=== PATIENT | male | born 1965 | race Caucasian/White ===

== ENCOUNTER → 2017-02-11 | Outpatient (CLI) | payer OTHER ==
[2017-02-11 12:22] LABS: CH 31.6; CHCM 33.4; HCT 46.5 % (39.0-53.0); HDW 2.63; HGB 15.3 gm/dL (13.0-17.5); MCH 31.3 pg (25.0-35.0); MCHC 32.9 g/dL (31.0-37.0); MCV 95.1 fL (80.0-100.0); Mean Platelet Volume 8.5; RBC 4.89 m/uL (4.30-5.90); RDW 13.2 % (11.5-15.5); WBC 4.1 k/uL (3.8-10.6)
[2017-02-11 12:29] LABS: ALT 97 U/L (21-72); AST 52 U/L (17-59); Alkaline Phosphatase 60 U/L (38-126); Anion Gap 12 mmol/L; Blood Urea Nitrogen 17 mg/dL (9-20); Calcium 9.7 mg/dL (8.4-10.2); Carbon Dioxide 24 mmol/L (22-30); Chloride 108 mmol/L (98-107); Cholesterol 139 mg/dL (<200); Glucose 100 mg/dL (74-99); HDL Cholesterol 47 mg/dL (40-60); Non-African American GFR(MDRD) >60 (>60 ml/min/1.73 sqM); Potassium 4.7 mmol/L (3.5-5.1); Sodium 144 mmol/L (137-145); Total Bilirubin 0.7 mg/dL (0.2-1.3); Triglycerides 40 mg/dL (<150)
[2017-02-11 12:59] LABS: Prostate Specific Antigen 3.21 ng/mL (0.00-4.00)
== END | disposition home or self-care (01) ==
LOC: LABWHC1 11:41
PROVIDERS: ATTEND Family Medicine
DX: Z00.01 Encounter for general adult medical examination with abnormal findings (principal); I83.93 Asymptomatic varicose veins of bilateral lower extremities; Z71.3 Dietary counseling and surveillance; Z68.25 Body mass index [BMI] 25.0-25.9, adult
CPT/HCPCS: 36415; 80053; 80061; 84153; 84439; 84443; 85027

== ENCOUNTER 2017-06-09 06:26 | Day surgery (SDC) | payer OTHER ==
[2017-06-07 09:34] VITALS: BMI 25.5
[~2017-06-09 06:26] MED LIST: HEPARIN SODIUM,PORCINE 5,000 UNIT/ML 1 ML VIAL SQ ONE; HYDROmorphone 1 MG/ML 1 ML SYRINGE IVP PRN; LACTATED RINGERS 1,000 ML IV SCH; LIDOCAINE 1% 20 ML VIAL (10MG/ML) FOR IV START INTRADERMA PRN; Pre Op ABX Message 1 EACH MISC MISCELLANE ONE
[2017-06-09 07:06] VITALS: RESP 16; TEMP 98.2
--- NOTE | 2017-06-09 07:50 | P.GSHP ---
History of Present Illness H&P Date: 06/09/17 Chief Complaint: Right hip mass, screening colonoscopy Patient seen in the office in mid April. The patient has complaints of a mass in the right anterolateral hip. He said this is been there since he was young and believes it was related to a sports injury. He has lost about 80 pounds intentionally and notices the lesion more now than ever. He does not believe it is enlarged. There is mild discomfort at times. He also is interested in a screening colonoscopy. No rectal bleeding or melena. No family history of colon cancer. Past Medical History Past Medical History: No Reported History History of Any Multi-Drug Resistant Organisms: None Reported Past Surgical History: No Surgical Hx Reported Additional Past Surgical History / Comment(s): wisdom teeth as teen Past Anesthesia/Blood Transfusion Reactions: No Reported Reaction Additional Past Anesthesia/Blood Transfusion Reaction / Comment(s): no surgery Smoking Status: Former smoker - Past Family History Mother Family Medical History: No Reported History Medications and Allergies Home Medications Medication Instructions Recorded Confirmed Type No Known Home Medications [No 06/07/17 06/09/17 History Known Home Medications] Allergies Allergy/AdvReac Type Severity Reaction Status Date / Time ciprofloxacin [From Cipro] Allergy irreg. Verified 06/09/17 07:07 heart rate; tingling in arms Surgical - Exam Vital Signs Temp Pulse Resp BP Pulse Ox 98.2 F 53 L 16 126/76 95 06/09/17 07:04 06/09/17 07:04 06/09/17 07:04 06/09/17 07:04 06/09/17 07:04 Physical exam: General: Well-developed, well-nourished HEENT: Normocephalic, sclerae nonicteric Abdomen: Nontender, nondistended Extremities: No edema, 2.5 cm firm mass right anterior lateral thigh Neuro: Alert and oriented Assessment and Plan (1) Mass of right hip region Narrative/Plan: Will proceed with screening colonoscopy and excision right hip lesion. Risks of bleeding, infection, numbness, recurrent, potential need for additional surgery were discussed. He understands and wishes to proceed. Status: Acute
[2017-06-09] MEDS ORDERED: LIDOCAINE 1% INJ 10MG/ML (20 ML MDV) ONE (07:59)
[2017-06-09] MEDS ORDERED: fentaNYL (PF) 50 MCG/ML 2 ML AMP ONE (07:59)
[2017-06-09] MEDS ORDERED: PROPOFOL 10 MG/ML 20 ML VIAL IV ONE (07:59)
[2017-06-09] MEDS ORDERED: MIDAZOLAM 2 MG/2 ML VIAL ONE (07:59)
[2017-06-09] MEDS ORDERED: BUPIVACAINE (PF) 0.25% 30 ML VIAL SQ ONE ×3 (08:09→08:27)
[2017-06-09 09:08] VITALS: BP 98/64; PULSE 53
[2017-06-09] MEDS ORDERED: HYDROcodone/APAP 5-325MG 1 EACH TAB PO PRN (09:10)
[2017-06-09] MEDS ORDERED: NALOXONE 0.4 MG/ML 1 ML VIAL IV PRN (09:10)
--- NOTE | 2017-06-09 09:10 | P.PCN ---
Date of Procedure: 06/09/17 Preoperative Diagnosis: Postoperative Diagnosis: Procedure(s) Performed: PREOPERATIVE DIAGNOSIS: Right thigh mass, screening POSTOPERATIVE DIAGNOSIS: Right thigh mass, normal colon PROCEDURE: Colonoscopy , right thigh mass excision ANESTHESIA: MAC SURGEON: Jerel Ballesteros M.D. SPECIMENS: Right thigh mass ENDOSCOPIC PROCEDURE: The patient was placed on the endoscopy table in the supine position. The anterior right hip was prepped and draped in usual sterile fashion. The skin was localized using portable percent Marcaine solution. A horizontal incision was made overlying the palpable mass. Dissection through the saphenous tissues took place using electrocautery. The patient's mass was beneath the fascia. The fascia was incised. The calcified mass measured 3.2 x 3 x 1.5 cm. This was sent to pathology for close examination. The subcutaneous tissues were closed using 3-0 Vicryl sutures and the skin using a running 4-0 Monocryl stitch. Steri-Strips and sterile dressings were applied. The patient was then placed in the left decubitus position. The Olympus colonoscope was inserted into the anus and passed under direct visualization to the base of the cecum. The appendiceal orifice was visualized. From that point the scope was slowly withdrawn inspecting all surfaces carefully. There were no neoplastic inflammatory or polypoid lesions throughout the cecum, ascending, transverse, descending, sigmoid and rectum. There was no diverticulosis noted. Digital rectal examination was normal. The patient was taken to the recovery room in stable condition per anesthesia guidelines. RECOMMENDATIONS: Await biopsy results. Follow-up in the office 1-2 weeks. Repeat colonoscopy 10 years. Implants: Indications for Procedure: Operative Findings: Description of Procedure:
== END 2017-06-09 10:00 | disposition home or self-care (01) ==
LOC: OR 06:26
PROVIDERS: ATTEND Surgery
DX: Z12.11 Encounter for screening for malignant neoplasm of colon (principal); M79.89 Other specified soft tissue disorders; Z88.1 Allergy status to other antibiotic agents; Z87.891 Personal history of nicotine dependence
CPT/HCPCS: 27048; 88305; 88311; J2250; J1644; J2001; J3010; J2704; G0121; 45380

== ENCOUNTER → 2024-04-28 | Outpatient (CLI) | payer OTHER ==
--- NOTE | 2024-04-28 12:41 | XR ---
EXAMINATION TYPE: XR chest 2V DATE OF EXAM: 04/28/2024 11:53 AM CLINICAL INDICATION:Male, 58 years old with history of R06.02 SOB; [facility] COMPARISON: Chest radiographs from 04/28/2024. TECHNIQUE: XR chest 2V Frontal and lateral views of the chest. FINDINGS: Lungs/Pleura: There is no evidence of pleural effusion, focal consolidation, or pneumothorax. Pulmonary vascularity: Unremarkable. Heart/mediastinum: Cardiomediastinal silhouette is unremarkable. Musculoskeletal: No acute osseous pathology. IMPRESSION: No acute cardiopulmonary disease/process.
[2024-04-28 15:27] LABS: ALT 29 U/L (10-49); AST 21 U/L (14-35); Albumin 4.9 g/dL (3.8-4.9); Albumin/Globulin Ratio 2.04 Ratio (1.60-3.17); Alkaline Phosphatase 59 U/L (41-126); BUN/Creat Ratio 13.11 Ratio (12.00-20.00); Blood Urea Nitrogen 11.8 mg/dL (9.0-27.0); Calcium 9.9 mg/dL (8.7-10.3); Chloride 105 mmol/L (96-109); Chol/HDL Ratio 5.39 Ratio; Globulin 2.4 g/dL (1.6-3.3); Glucose 108 mg/dL (70-110); LDL Cholesterol,Calculated 126.6 mg/dL (0.0-131.0); Potassium 4.6 mmol/L (3.5-5.5); Sodium 139 mmol/L (135-145); Total Bilirubin 1.1 mg/dL (0.3-1.2); Total Protein 7.3 g/dL (6.2-8.2)
[2024-04-28 15:28] LABS: Basophils # (A) 0.05 X 10*3/uL (0.00-0.10); Basophils % (A) 0.9 %; Eosinophils % (A) 1.9 %; HCT 48.3 % (39.6-50.0); HGB 16.2 g/dL (13.0-17.0); Lymphocytes # (A) 2.19 X 10*3/uL (0.90-5.00); Lymphocytes % (A) 41.6 %; MCH 30.9 pg (27.0-32.0); MCHC 33.5 g/dL (32.0-37.0); MCV 92.2 FL (80.0-97.0); Mean Platelet Volume 11.9 FL (9.5-12.2); Monocytes # (A) 0.35 X 10*3/uL (0.20-1.00); Monocytes % (A) 6.6 %; NRBC Per 100 WBC 0 X 10*3/uL (0.00-0.01); Neutrophils # (A) 2.56 X 10*3/uL (1.80-7.70); Neutrophils % (A) 48.6 %; Platelet Count 199 X 10*3/uL (140-440); RBC 5.24 X 10*6/uL (4.40-5.60); RDW 12.9 % (11.5-14.5); WBC 5.27 X 10*3/uL (4.50-10.00)
== END | disposition home or self-care (01) ==
LOC: LABWHC1 11:32
PROVIDERS: ATTEND Family Medicine
DX: Z13.220 Encounter for screening for lipoid disorders (principal); Z13.29 Encounter for screening for other suspected endocrine disorder; E66.09 Other obesity due to excess calories; R06.02 Shortness of breath; Z82.49 Family history of ischemic heart disease and other diseases of the circulatory system; Z68.30 Body mass index [BMI] 30.0-30.9, adult
CPT/HCPCS: 36415; 71046; 80053; 80061; 84443; 85025; 85379